=== PATIENT | male | born 1980 | race Caucasian/White ===

== ENCOUNTER 2018-06-26 15:02 | Emergency (ER) | payer SELFPAY ==
[~2018-06-26] VITALS: Ht 172.7 cm; Wt 95.7 kg
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
[2018-06-26] MEDS ORDERED: IBUPROFEN 600 MG TABLET PO ONE ×2 (15:57→16:00)
[2018-06-26] MEDS ORDERED: METHOCARBAMOL (500MG) 500 MG TABLET ONE (15:58)
--- NOTE | 2018-06-26 15:59 | NUR ---
PT TAKEN TO CT VIA WC
[2018-06-26] MEDS ORDERED: METHOCARBAMOL (500MG) 500 MG TABLET PO ONE (16:00)
--- NOTE | 2018-06-26 16:50 | NUR ---
Patient discharged to home in stable condition. Written and verbal after care instructions given. Patient verbalizes understanding of instruction.
[2018-06-26 16:52] VITALS: BP 122/67
== END 2018-06-26 16:47 | disposition home or self-care (01) ==
LOC: ER 15:02
DX: S29.012A Strain of muscle and tendon of back wall of thorax, initial encounter (principal); V49.49XA Driver injured in collision with other motor vehicles in traffic accident, initial encounter; Y93.89 Activity, other specified; Y92.413 State road as the place of occurrence of the external cause; Y99.8 Other external cause status
CPT/HCPCS: 72125-TC; 72128-TC